=== PATIENT | male | born 1995 | race American Indian/Alaskan Native ===

== ENCOUNTER 2016-04-01 23:34 | Emergency (ER) | payer SELFPAY ==
[2016-04-02 02:13] VITALS: BP 121/59
--- NOTE | 2016-04-02 04:37 | Emergency Department Report ---
- General Chief complaint: Skin/Abscess/Foreign Body Stated complaint: RASH/ARMS Time Seen by Provider: 04/02/16 04:21 Source: patient Mode of arrival: Ambulatory Limitations: No Limitations - History of Present Illness Initial comments: Patient here reports sores to rt upper extremity. He said it started on Rt FA below elbow and he drained some pus out of it. He reports that he has 2 more sore that started a few days ago.Denies any pain at present.He initially beleived he was bitten by a spider but know not sure because of new areas. Patient reports that he's putting peroxide and A+D Ointment to areas. He said he's had similar incident in the past. Denies any fever or chills or nausea or vomiting. Rash is localized to right upper extremity. MD complaint: abscess/boil Onset/Timin -: days(s) Tetanus Up to Date: yes Location: RUE Severity scale (0 -10): 0 Context: other (possible insect bite) Associated symptoms: denies other symptoms Treatments Prior to Arrival: OTC topical medication - Related Data Previous Rx's Medication Instructions Recorded Last Taken Type Ciprofloxacin HCl [Ciprofloxacin 500 mg PO BID #10 tablet 04/21/14 Unknown Rx TAB] Ibuprofen [Motrin] 800 mg PO Q8HR PRN #20 tablet 01/02/16 Unknown Rx Sulfamethoxazole/Trimethoprim 1 each PO BID #20 tablet 04/02/16 Unknown Rx [Bactrim DS TAB] Allergies Allergy/AdvReac Type Severity Reaction Status Date / Time No Known Allergies Allergy Verified 04/21/14 12:59 Abscess Boil HPI - HPI Chief Complaint: Skin/Abscess/Foreign Body Stated Complaint: RASH/ARMS Time Seen by Provider: 04/02/16 04:21 Home Medications: Previous Rx's Medication Instructions Recorded Last Taken Type Ciprofloxacin HCl [Ciprofloxacin 500 mg PO BID #10 tablet 04/21/14 Unknown Rx TAB] Ibuprofen [Motrin] 800 mg PO Q8HR PRN #20 tablet 01/02/16 Unknown Rx Sulfamethoxazole/Trimethoprim 1 each PO BID #20 tablet 04/02/16 Unknown Rx [Bactrim DS TAB] Allergies/Adverse Reactions: Allergies Allergy/AdvReac Type Severity Reaction Status Date / Time No Known Allergies Allergy Verified 04/21/14 12:59 ED Review of Systems ROS: Stated complaint: RASH/ARMS Other details as noted in HPI Comment: All other systems reviewed and negative Constitutional: denies: chills, fever, malaise, weakness Eyes: denies: eye pain ENT: denies: ear pain, throat pain, congestion Respiratory: no symptoms reported Cardiovascular: denies: chest pain, palpitations, edema, syncope Gastrointestinal: denies: abdominal pain, diarrhea Skin: rash Neurological: denies: headache, numbness, paresthesias, confusion, abnormal gait , other ED Past Medical Hx - Past Medical History Previous Medical History?: No - Surgical History Past Surgical History?: Yes Additional Surgical History: cataract surgery 2011. TUBES IN EARS - Family History Family history: hypertension - Social History Smoking Status: Never Smoker Substance Use Type: None - Medications Home Medications: Home Medications Medication Instructions Recorded Confirmed Last Taken Type Ciprofloxacin HCl [Ciprofloxacin 500 mg PO BID #10 tablet 04/21/14 Unknown Rx TAB] Ibuprofen [Motrin] 800 mg PO Q8HR PRN #20 tablet 01/02/16 Unknown Rx Sulfamethoxazole/Trimethoprim 1 each PO BID #20 tablet 04/02/16 Unknown Rx [Bactrim DS TAB] ED Physical Exam - General Limitations: No Limitations General appearance: alert, in no apparent distress - Head Head exam: Present: atraumatic, normocephalic, normal inspection - Eye Eye exam: Present: normal appearance, PERRL, EOMI Pupils: Present: normal accommodation - ENT ENT exam: Present: normal exam, normal orophraynx, mucous membranes moist, TM's normal bilaterally, normal external ear exam - Neck Neck exam: Present: normal inspection, full ROM. Absent: tenderness, lymphadenopathy - Respiratory Respiratory exam: Present: normal lung sounds bilaterally. Absent: respiratory distress, chest wall tenderness - Cardiovascular Cardiovascular Exam: Present: regular rate, normal rhythm, normal heart sounds - Extremities Exam Extremities exam: Present: normal inspection, full ROM, normal capillary refill. Absent: tenderness, pedal edema, joint swelling, calf tenderness - Back Exam Back exam: Present: normal inspection, full ROM. Absent: tenderness, CVA tenderness (R), CVA tenderness (L), muscle spasm, paraspinal tenderness, vertebral tenderness, rash noted - Neurological Exam Neurological exam: Present: alert, oriented X3, normal gait - Psychiatric Psychiatric exam: Present: normal affect, normal mood - Skin Skin exam: Present: warm, dry, rash, erythema - Expanded Skin Exam Expanded Type of lesion: Present: other (cellulitic area with minimal induration noted to right upper extremity. A total of two quarter size area and one dime-sized area.) Distribution of rash: RUE (in her right forearm, right arm) Description of rash: Present: tenderness, erythematous, swelling, indurated ( minimal induration). Absent: fluctuant ED Course Vital Signs 04/02/16 02:08 Temperature 98.2 F Pulse Rate 60 Respiratory 18 Rate Blood Pressure 121/59 O2 Sat by Pulse 98 Oximetry - Reevaluation(s) Reevaluation #1: 04/02/16 05:10 Given Rocephin 1 g IM and emergency room for cellulitis. ED Medical Decision Making - Medical Decision Making ED course: The patient that he has cellulitis areas to his right arm and we'll need to keep affected area clean and dry. I Discussed with him that if areas of redness increase or if he developed fever to return to emergency room [facility]AN[facility]. Patient given Rocephin 1 g IM and emergency room. Activity area cleansed with iodine and normal saline and left open to air. Patient discharged home with prescription for Bactrim DS and to follow-up with primary care physician if he does not have one that he could follow-up with [facility] or emergency room Critical care attestation.: If time is entered above; I have spent that time in minutes in the direct care of this critically ill patient, excluding procedure time. ED Disposition Clinical Impression: Cellulitis of right upper extremity Disposition: DISCHARGED TO HOME OR SELFCARE Is pt being admited?: No Does the pt Need Aspirin: No Condition: Stable Instructions: Cellulitis (ED) Additional Instructions: Please take antibiotic as prescribed. You put Neosporin to affected areas twice daily until healed. This is over-the- counter medication. Is follow-up with primary care doctor or milieu coordinator in 3-4 days. He do not have a primary care or cannot see dermatology is return to the emergency room. If you noted areas with increased redness, developed fever please return to the emergency room [facility]AN[facility]. Please apply warm compresses to affected area 3-4 times a day to facilitate softening and drainage. Prescriptions: Sulfamethoxazole/Trimethoprim [Bactrim DS TAB] 1 each PO BID #20 tablet Referrals: [facility] [Outside] - 04/06/16 MOSES MORRISSEY MD [Staff Physician] - 04/06/16 Forms: Work/School Release Form(ED)
[2016-04-02] MEDS ORDERED: XYLOCAINE 1% MPF 5 mL INFILTRATI ONE (04:40)
[2016-04-02] MEDS ORDERED: ROCEPHIN IM ONE (04:40)
== END 2016-04-02 05:30 | disposition home or self-care (01) ==
LOC: ED 23:34
DX: L03.113 Cellulitis of right upper limb (principal)
CPT/HCPCS: 96372; 99282; J0696

== ENCOUNTER 2019-07-14 19:35 | Emergency (ER) | payer MEDICAID ==
[2019-07-14 19:40] VITALS: BP 141/81
[2019-07-14] MEDS ORDERED: SODIUM CHLORIDE 0.9% IRR 500 ML BOTTLE IR ONE (19:43)
[2019-07-14] MEDS ORDERED: LIDOCAINE (2%) 20 MG/1 ML VIAL 20 ML MDV INFILTRATI STA (19:57)
--- NOTE | 2019-07-14 20:04 | Emergency Department Report ---
ED Head Trauma HPI - General Chief complaint: Wound/Laceration Stated complaint: LIP LACERATION Time Seen by Provider: 07/14/19 19:56 Source: patient Mode of arrival: Ambulatory Limitations: No Limitations - History of Present Illness Initial comments: 24-year-old F [place]ian male reports he was running from a dog and accidentally ran into the side hitting his face causing injury and laceration which is 6 treatment in the emergency department he denies any loss of consciousness but does have a dull headache no neck pain. This injury occurred about an hour hour before arrival and is worse with palpation and various range of motion. Reports no other injury MD Complaint: head injury, other -: Sudden Mechanism of Injury: unsure Location: frontal Previous Trauma to this Area: No Radiation: none Quality: dull Consistency: constant Provoking factors: none known Other Injuries: none Associated Symptoms: denies: amnesia, repetitive questioning, vision changes, vomiting, vertigo, syncope, weakness, tingling - Related Data Previous Rx's Medication Instructions Recorded Last Taken Type Ciprofloxacin HCl [Ciprofloxacin 500 mg PO BID #10 tablet 04/21/14 Unknown Rx TAB] Ibuprofen [Motrin] 800 mg PO Q8HR PRN #20 tablet 01/02/16 Unknown Rx Sulfamethoxazole/Trimethoprim 1 each PO BID #20 tablet 04/02/16 Unknown Rx [Bactrim DS TAB] Chlorhexidine Gluconate 5 ml TP BID #240 liquid 07/14/19 Unknown Rx [Antiseptic Skin Cleanser] Mupirocin [Bactroban 2%] 1 applic TP TID #1 tube 07/14/19 Unknown Rx Allergies/Adverse reactions: Allergies Allergy/AdvReac Type Severity Reaction Status Date / Time No Known Allergies Allergy Verified 04/21/14 12:59 ED Review of Systems ROS: Stated complaint: LIP LACERATION Other details as noted in HPI Comment: All other systems reviewed and negative ED Past Medical Hx - Past Medical History Previous Medical History?: No - Surgical History Additional Surgical History: cataract surgery 2012. TUBES IN EARS - Social History Smoking Status: Never Smoker Substance Use Type: Marijuana - Medications Home Medications: Home Medications Medication Instructions Recorded Confirmed Last Taken Type Ciprofloxacin HCl [Ciprofloxacin 500 mg PO BID #10 tablet 04/21/14 Unknown Rx TAB] Ibuprofen [Motrin] 800 mg PO Q8HR PRN #20 tablet 01/02/16 Unknown Rx Sulfamethoxazole/Trimethoprim 1 each PO BID #20 tablet 04/02/16 Unknown Rx [Bactrim DS TAB] Chlorhexidine Gluconate 5 ml TP BID #240 liquid 07/14/19 Unknown Rx [Antiseptic Skin Cleanser] Mupirocin [Bactroban 2%] 1 applic TP TID #1 tube 07/14/19 Unknown Rx ED Physical Exam - General Limitations: No Limitations General appearance: alert, in no apparent distress - Head Head exam: Present: normocephalic - Expanded Head Exam Expanded Head exam: Present: abrasion, contusion, hematoma 1 - Abrasion swelling and tenderness 2 - Swelling and some ecchymosis noted small laceration less than 1 cm 3 - 2.5 cm laceration to this region full-thickness 4 - Small laceration to the this region only a couple millimeters - Eye Eye exam: Present: normal appearance, PERRL Pupils: Present: normal accommodation - ENT ENT exam: Present: normal exam, mucous membranes moist, TM's normal bilaterally - Neck Neck exam: Present: normal inspection, full ROM - Respiratory Respiratory exam: Present: normal lung sounds bilaterally. Absent: respiratory distress, wheezes, rales, chest wall tenderness, accessory muscle use, decreased breath sounds - Cardiovascular Cardiovascular Exam: Present: regular rate, normal rhythm. Absent: systolic murmur, diastolic murmur, rubs, gallop - GI/Abdominal GI/Abdominal exam: Present: soft, normal bowel sounds - Rectal Rectal exam: Present: deferred - Extremities Exam Extremities exam: Present: normal inspection - Back Exam Back exam: Present: normal inspection. Absent: CVA tenderness (R), CVA tenderness (L), paraspinal tenderness - Neurological Exam Neurological exam: Present: alert, oriented X3, CN II-XII intact, normal gait - Psychiatric Psychiatric exam: Present: normal affect, normal mood. Absent: anxious, flat affect, manic - Skin Skin exam: Present: warm, dry, intact, normal color. Absent: rash, diaphoretic, erythema, urticaria, petechiae, pallor, abrasion ED Course Vital Signs 07/14/19 19:38 Temperature 98.4 F Pulse Rate 64 Respiratory 18 Rate Blood Pressure 141/81 O2 Sat by Pulse 100 Oximetry - Procedure Description Procedures done: Skin was prepped and draped in sterile fashion anesthesia achieved with 2% lidocaine with no epinephrine 5-0 Prolene was placed in simple operative fashion x5 for wound closure with minimal complications the laceration was 2.5 cm to the upper aspect of the left lip. - Medical Decision Making Cosby coma scale 15. Moderate hematoma to the frontal aspect of the head with some associated abrasion and also swelling to the nasal bridge with with swelling with abrasion as well. No skull crepitance or stepoff. No Daniel sign. No raccoon eyes. No fluid from nose or ears. No nasal septal hematoma. However there is a open wound to the bridge of the nose externally with some adjacent swelling as well open wounds. No cervical spine tenderness. CT scan was recommended to evaluate for the possibility of intracranial hemorrhage given his headache and throbbing in injury mechanism however he refused on multiple occasions. He is of sound judgment alert and oriented x3 and he understands the risk associated with foregoing the recommended CT scan that including chronic injury or or disability given instructions regarding supportive care including pain meds as needed, return precautions, follow-up with primary physician. Critical care attestation.: If time is entered above; I have spent that time in minutes in the direct care of this critically ill patient, excluding procedure time. ED Disposition Clinical Impression: Head injury, Lip laceration, Facial contusion, Facial abrasion Disposition: DC-07 LEFT AGAINST MED ADVICE Is pt being admited?: No Does the pt Need Aspirin: No Condition: Undetermined Instructions: Suture Care (ED), Laceration (ED), Minor Head Injury (ED) Prescriptions: Chlorhexidine Gluconate [Antiseptic Skin Cleanser] 5 ml TP BID #240 liquid Mupirocin [Bactroban 2%] 1 applic TP TID #1 tube Referrals: [facility] [Provider Group] - 3-5 Days
[2019-07-14] MEDS ORDERED: NEOMY 3.5 MG/BACIT 400 UNITS/POLY B 5000 UNITS/GM OINT PACKET TP ONE ×2 (20:45→20:46)
== END 2019-07-14 21:10 | disposition left against medical advice (07) ==
LOC: ED 19:35
DX: S01.511A Laceration without foreign body of lip, initial encounter (principal); S00.83XA Contusion of other part of head, initial encounter; F12.10 Cannabis abuse, uncomplicated; Z98.890 Other specified postprocedural states; Z79.899 Other long term (current) drug therapy; X58.XXXA Exposure to other specified factors, initial encounter; Y93.89 Activity, other specified; Y92.89 Other specified places as the place of occurrence of the external cause; Y99.8 Other external cause status
CPT/HCPCS: 99282; A6250

== ENCOUNTER 2019-07-24 10:05 | Emergency (ER) | payer SELFPAY ==
[2019-07-24 10:20] VITALS: BP 123/58
--- NOTE | 2019-07-24 11:21 | Emergency Department Report ---
Suture/Staple Removal - HPI Chief Complaint: Laceration/Recheck/Suture Stated Complaint: LFT SIDE FACE STITCHS REMOVED Time Seen by Provider: 07/24/19 11:01 When Sutures or Juanis Placed: 5-7 Days Ago Wound Location: Under left nare ED Review of Systems ROS: Stated complaint: LFT SIDE FACE STITCHS REMOVED Other details as noted in HPI Comment: All other systems reviewed and negative ED Past Medical Hx - Past Medical History Previous Medical History?: No - Surgical History Past Surgical History?: Yes Additional Surgical History: cataract surgery 2011. TUBES IN EARS - Social History Smoking Status: Current Every Day Smoker Substance Use Type: None - Medications Home Medications: Home Medications Medication Instructions Recorded Confirmed Last Taken Type Ciprofloxacin HCl [Ciprofloxacin 500 mg PO BID #10 tablet 04/21/14 Unknown Rx TAB] Ibuprofen [Motrin] 800 mg PO Q8HR PRN #20 tablet 01/02/16 Unknown Rx Sulfamethoxazole/Trimethoprim 1 each PO BID #20 tablet 04/02/16 Unknown Rx [Bactrim DS TAB] Chlorhexidine Gluconate 5 ml TP BID #240 liquid 07/14/19 Unknown Rx [Antiseptic Skin Cleanser] Mupirocin [Bactroban 2%] 1 applic TP TID #1 tube 07/14/19 Unknown Rx Suture Removal Exam - Exam General: Vital signs noted. No distress. Alert and acting appropriately. Wound: No Pathologic Erythema, No Tenderness, No Drainage, No Pus, No Wound Dehiscence Other Systems: All other systems reviewed and are unremarkable. ED Course Vital Signs 07/24/19 10:16 Temperature 97.9 F Pulse Rate 54 L Respiratory 15 Rate Blood Pressure 123/58 O2 Sat by Pulse 98 Oximetry ED Recheck MDM - Core Measures AMI Core Measures Followed: Yes - Differential Diagnosis Suture/Staple Removal - Medical Decision Making Sutures removed by this provider. Patient tolerated procedure. Critical care attestation.: If time is entered above; I have spent that time in minutes in the direct care of this critically ill patient, excluding procedure time. ED Disposition Clinical Impression: Visit for suture removal Disposition: DC-01 TO HOME OR SELFCARE Is pt being admited?: No Does the pt Need Aspirin: No Condition: Stable
== END 2019-07-24 11:19 | disposition home or self-care (01) ==
LOC: ED 10:05
DX: Z48.02 Encounter for removal of sutures (principal); F17.200 Nicotine dependence, unspecified, uncomplicated; Z98.890 Other specified postprocedural states; Z79.1 Long term (current) use of non-steroidal anti-inflammatories (NSAID); Z79.2 Long term (current) use of antibiotics; Z79.899 Other long term (current) drug therapy
CPT/HCPCS: 99282

== ENCOUNTER 2021-08-18 07:26 | Emergency (ER) | payer SELFPAY ==
[2021-08-18 07:59] VITALS: BP 117/54
[2021-08-18] MEDS ORDERED: ACETAMINOPHEN 325 MG TAB PO ONE (07:59)
== END 2021-08-18 18:16 | disposition left against medical advice (07) ==
LOC: ED 07:26
DX: R10.9 Unspecified abdominal pain (principal); Z53.21 Procedure and treatment not carried out due to patient leaving prior to being seen by health care provider

== ENCOUNTER 2021-08-19 00:43 | Emergency (ER) | payer SELFPAY ==
[2021-08-19 06:59] LABS: Bilirubin,Urine NEG (Negative); Blood,Urine NEG (Negative); Color,Urine Amber (Yellow); WBC,Urine < 1.0 /HPF (0.0-6.0)
[2021-08-19 07:00] LABS: RBC,Urine < 1.0 /HPF (0.0-6.0)
[2021-08-19 07:34] VITALS: BP 145/65
[2021-08-19] MEDS ORDERED: MORPHINE 4 MG/1 ML INJ IV ONE ×2 (07:42→10:48)
[2021-08-19] MEDS ORDERED: ONDANSETRON 4 MG/2 ML INJ IV ONE (07:42)
[2021-08-19] MEDS ORDERED: SODIUM CHLORIDE 0.9% 1000 ML 1,000 ML IV ONE (07:48)
[2021-08-19] MEDS ORDERED: SODIUM CHLORIDE 0.9% 1000 ML 1,000 ML ONE (07:49)
[2021-08-19 08:06] LABS: Basophils # (Auto) 0.3 K/mm3 (0.0-0.1); Basophils % (Auto) 2.5 % (0.0-1.8); Eosinophils # (Auto) 0.1 K/mm3 (0.0-0.4); Eosinophils % (Auto) 1.1 % (0.0-4.3); Hematocrit 39.6 % (35.5-45.6); Hemoglobin 13.1 gm/dl (11.8-15.2); Lymphocytes # (Auto) 0.9 K/mm3 (1.2-5.4); Lymphocytes % (Auto) 8.1 % (13.4-35.0); Mean Corpuscular HGB Conc 33 % (32-34); Mean Corpuscular Volume 89 fl (84-94); Monocytes % (Auto) 9.2 % (0.0-7.3); Platelet Count 249 K/mm3 (140-440); Red Blood Count 4.47 M/mm3 (3.65-5.03); Red Cell Distribution Width 13.3 % (13.2-15.2)
[2021-08-19 08:27] LABS: Alanine Aminotransferase 16 units/L (7-56); Albumin 3.7 g/dL (3.9-5); BUN/Creatinine Ratio 10; Blood Urea Nitrogen 9 mg/dL (9-20); Calcium 9.1 mg/dL (8.4-10.2); Hemolysis Index 1
--- NOTE | 2021-08-19 08:41 | Ultrasound Report ---
ULTRASOUND ABDOMEN, LIMITED (RIGHT UPPER QUADRANT) INDICATION / CLINICAL INFORMATION: ruq pain. COMPARISON: None available. FINDINGS: PANCREAS: Visualized portion shows no significant abnormality. LIVER: No significant abnormality. Normal hepatopedal flow within the portal vein. GALLBLADDER: No significant abnormality. BILE DUCTS: No significant abnormality. Common bile duct measures 4 mm. FREE FLUID: None. ADDITIONAL FINDINGS: None. IMPRESSION: 1. No significant sonographic abnormality of the right upper quadrant. Signer Name: Romeo Dwyer DO Signed: 08/19/2021 8:37 AM Workstation Name: [id number]
[2021-08-19] MEDS ORDERED: KETOROLAC 30 MG/1 ML INJ IV ONE (10:48)
--- NOTE | 2021-08-19 11:26 | Cat Scan Report ---
CT CHEST WITHOUT CONTRAST INDICATION / CLINICAL INFORMATION: abdominal pain. TECHNIQUE: Axial CT images were obtained through the chest without contrast. All CT scans at this loc ation are performed using CT dose reduction for ALARA by means of automated exposure control. COMPARISON: None available. FINDINGS: HEART: No significant abnormality. CORONARY ARTERY CALCIFICATION: None. THORACIC AORTA: No significant abnormality. MEDIASTINUM / WILIAM: No significant abnormality. PLEURA: No pleural effusion. No pneumothorax. LUNGS: Patchy airspace opacities noted within the right lower lobe. ADDITIONAL FINDINGS: None. SKELETAL SYSTEM: No significant abnormality. IMPRESSION: 1. Right lower lobe pneumonia. CT ABDOMEN AND PELVIS WITH CONTRAST INDICATION / CLINICAL INFORMATION: abdominal pain. TECHNIQUE: Axial CT images were obtained through the abdomen and pelvis after 100 cc of Omnipaque [address] scans at this location are performed using CT dose reduction for ALARA by means of automated exposure control. COMPARISON: None available. FINDINGS: AORTA / ARTERIES: No significant abnormality. IVC / VEINS: No significant abnormality. LYMPH NODES: No significant adenopathy. COLON: No significant abnormality. APPENDIX: No significant abnormality. STOMACH / SMALL BOWEL: No significant abnormality. PERITONEUM: No free fluid. No free air. No fluid collection. LIVER: No significant abnormality. GALLBLADDER: No significant abnormality. BILE DUCTS: No significant abnormality. PANCREAS: No significant abnormality. SPLEEN: No significant abnormality. ADRENALS: No significant abnormality. RIGHT KIDNEY / URETER: No significant abnormality. LEFT KIDNEY / URETER: No significant abnormality. URINARY BLADDER: No significant abnormality. REPRODUCTIVE ORGANS: No significant abnormality. SKELETAL SYSTEM: No significant abnormality. ADDITIONAL FINDINGS: None. IMPRESSION: 1. No acute intra-abdominal or intrapelvic pathology, specifically no CT findings to explain abdomina l pain. Please see above for CT of the chest. Signer Name: Romeo Dwyer DO Signed: 08/19/2021 11:21 AM Workstation Name: [id number]
[2021-08-19] MEDS ORDERED: ACETAMINOPHEN W/CODEINE 300-30 MG TAB PO ONE (11:46)
[2021-08-19] MEDS ORDERED: AMOXICILLIN 500 MG CAP PO ONE (11:46)
[2021-08-19] MEDS ORDERED: AZITHROMYCIN 250 MG TAB PO ONE (11:47)
--- NOTE | 2021-08-19 11:51 | Emergency Department Report ---
ED Abdominal Pain HPI - General Chief Complaint: Abdominal Pain Stated Complaint: KIDNEY Time Seen by Provider: 08/19/21 07:41 Source: patient Mode of arrival: Ambulatory Limitations: No Limitations - History of Present Illness Initial Comments: 26-year-old black male with no past medical history presents to the emergency department for evaluation of 4-day history of worsening right upper quadrant pain, right flank pain, and right upper back pain. He states that pain is 10 out of 10 and persistent. He states that he has had a intermittent fever but denies nausea, vomiting, and penile discharge. He denies any sick contacts. MD Complaint: abdominal pain -: Gradual, days(s) (For) Location: RUQ, R flank Radiation: back (Right upper) Migration to: no migration Severity scale (0 -10): 10 Quality: aching Consistency: constant Worsens With: movement Associated Symptoms: fever. denies: nausea, vomiting, diarrhea, chills, dysuria, hematemesis, hematochezia, melena, hematuria, anorexia, syncope - Related Data Previous Rx's Medication Instructions Recorded Last Taken Type Ciprofloxacin HCl [Ciprofloxacin 500 mg PO BID #10 tablet 04/21/14 Unknown Rx TAB] Ibuprofen [Motrin] 800 mg PO Q8HR PRN #20 tablet 01/02/16 Unknown Rx Sulfamethoxazole/Trimethoprim 1 each PO BID #20 tablet 04/02/16 Unknown Rx [Bactrim DS TAB] Chlorhexidine Gluconate 5 ml TP BID #240 liquid 07/14/19 Unknown Rx [Antiseptic Skin Cleanser] Mupirocin [Bactroban 2%] 1 applic TP TID #1 tube 07/14/19 Unknown Rx Acetaminophen/Codeine [Tylenol 1 tab PO Q6H PRN #12 tab 08/19/21 Unknown Rx /Codeine # 3 tab] Amoxicillin [Trimox CAP] 1,000 mg PO Q8H 7 Days #42 capsule 08/19/21 Unknown Rx Azithromycin 250 mg PO DAILY #4 tab 08/19/21 Unknown Rx Allergies Allergy/AdvReac Type Severity Reaction Status Date / Time No Known Allergies Allergy Verified 08/19/21 07:53 ED Review of Systems ROS: Stated complaint: KIDNEY Other details as noted in HPI Comment: All other systems reviewed and negative Constitutional: fever, malaise, weakness. denies: chills, diaphoresis ENT: denies: ear pain, congestion Respiratory: denies: cough, orthopnea, shortness of breath, SOB with exertion, SOB at rest, stridor, wheezing Cardiovascular: denies: chest pain, palpitations, dyspnea on exertion, orthopnea, edema, syncope, paroxysmal nocturnal dyspnea Gastrointestinal: abdominal pain. denies: nausea, vomiting, diarrhea, hematemesis, melena, hematochezia Genitourinary: denies: urgency, dysuria, frequency, hematuria, discharge Musculoskeletal: back pain Skin: denies: rash, lesions Neurological: denies: headache, weakness ED Past Medical Hx - Past Medical History Previous Medical History?: No - Surgical History Past Surgical History?: Yes Additional Surgical History: cataract surgery 2011. TUBES IN EARS - Social History Smoking Status: Never Smoker Substance Use Type: None - Medications Home Medications: Home Medications Medication Instructions Recorded Confirmed Last Taken Type Ciprofloxacin HCl [Ciprofloxacin 500 mg PO BID #10 tablet 04/21/14 Unknown Rx TAB] Ibuprofen [Motrin] 800 mg PO Q8HR PRN #20 tablet 01/02/16 Unknown Rx Sulfamethoxazole/Trimethoprim 1 each PO BID #20 tablet 04/02/16 Unknown Rx [Bactrim DS TAB] Chlorhexidine Gluconate 5 ml TP BID #240 liquid 07/14/19 Unknown Rx [Antiseptic Skin Cleanser] Mupirocin [Bactroban 2%] 1 applic TP TID #1 tube 07/14/19 Unknown Rx Acetaminophen/Codeine [Tylenol 1 tab PO Q6H PRN #12 tab 08/19/21 Unknown Rx /Codeine # 3 tab] Amoxicillin [Trimox CAP] 1,000 mg PO Q8H 7 Days #42 capsule 08/19/21 Unknown Rx Azithromycin 250 mg PO DAILY #4 tab 08/19/21 Unknown Rx ED Physical Exam - General Limitations: No Limitations General appearance: alert, in no apparent distress - Head Head exam: Present: atraumatic, normocephalic - Eye Eye exam: Present: normal appearance. Absent: conjunctival injection - Neck Neck exam: Present: normal inspection, full ROM. Absent: tenderness, lymphadenopathy - Respiratory Respiratory exam: Present: normal lung sounds bilaterally. Absent: respiratory distress, wheezes, rales, rhonchi, stridor, chest wall tenderness - Cardiovascular Cardiovascular Exam: Present: bradycardia, normal heart sounds - GI/Abdominal GI/Abdominal exam: Present: soft, tenderness (Right upper quadrant). Absent: distended, guarding, rebound, rigid, normal bowel sounds - Extremities Exam Extremities exam: Present: normal inspection, normal capillary refill. Absent: pedal edema, joint swelling, calf tenderness - Back Exam Back exam: Present: normal inspection, CVA tenderness (R). Absent: CVA tenderness (L), vertebral tenderness - Neurological Exam Neurological exam: Present: alert, oriented X3 - Psychiatric Psychiatric exam: Present: normal affect, normal mood - Skin Skin exam: Present: warm, dry, intact, normal color ED Course Vital Signs 08/19/21 08/19/21 08/19/21 02:01 07:33 08:00 Temperature 98.5 F 98.4 F Pulse Rate 54 L 70 Respiratory 18 20 20 Rate Blood Pressure 132/57 145/65 [Left] O2 Sat by Pulse 99 98 Oximetry 08/19/21 08/19/21 08/19/21 08:30 10:55 10:56 Temperature Pulse Rate Respiratory 20 18 18 Rate Blood Pressure [Left] O2 Sat by Pulse Oximetry 08/19/21 12:00 Temperature 98.1 F Pulse Rate 70 Respiratory 18 Rate Blood Pressure 145/65 [Left] O2 Sat by Pulse 99 Oximetry ED Medical Decision Making - Lab Data Result diagrams: 08/19/21 07:45 08/19/21 07:45 - Radiology Data Radiology results: report reviewed, image reviewed Right upper quadrant ultrasound: FINDINGS: PANCREAS: Visualized portion shows no significant abnormality. LIVER: No significant abnormality. Normal hepatopedal flow within the portal vein. GALLBLADDER: No significant abnormality. BILE DUCTS: No significant abnormality. Common bile duct measures 4 mm. FREE FLUID: None. ADDITIONAL FINDINGS: None. IMPRESSION: 1. No significant sonographic abnormality of the right upper quadrant. CT abdomen pelvis with contrast: FINDINGS: HEART: No significant abnormality. CORONARY ARTERY CALCIFICATION: None. THORACIC AORTA: No significant abnormality. MEDIASTINUM / WILIAM: No significant abnormality. PLEURA: No pleural effusion. No pneumothorax. LUNGS: Patchy airspace opacities noted within the right lower lobe. ADDITIONAL FINDINGS: None. SKELETAL SYSTEM: No significant abnormality. IMPRESSION: 1. Right lower lobe pneumonia. CT chest without contrast: FINDINGS: HEART: No significant abnormality. CORONARY ARTERY CALCIFICATION: None. THORACIC AORTA: No significant abnormality. MEDIASTINUM / WILIAM: No significant abnormality. PLEURA: No pleural effusion. No pneumothorax. LUNGS: Patchy airspace opacities noted within the right lower lobe. ADDITIONAL FINDINGS: None. SKELETAL SYSTEM: No significant abnormality. IMPRESSION: 1. Right lower lobe pneumonia. - Medical Decision Making 26-year-old black male with no past medical history presents to the emergency department for evaluation of 4-day history of worsening right upper quadrant pain, right flank pain, and right upper back pain. He states that pain is 10 out of 10 and persistent. He states that he has had a intermittent fever but denies nausea, vomiting, and penile discharge. He denies any sick contacts. Right upper quadrant and right flank tenderness on exam along with right CVA tenderness. No gross abnormalities noted on labs, and urine negative for UTI. Right upper quadrant ultrasound without any gross abnormalities noted. CT chest abdomen and pelvis positive for right lower lobe pneumonia. Patient will be treated with 7-day course of amoxicillin 1000 mg 3 times daily along with azit hromycin 500 mg on day 1 then 250 mg for the next 4 days. He will also be discharged home with Tylenol with codeine for pain and cough. He is advised to take medications as prescribed, drink plenty of noncaffeinated fluids, and follow-up with his primary care provider in 3 to 4 days if no improvement or worsening symptoms. He is advised to return to the emergency department as needed. He verbalizes understanding of and agreement with plan of care. Critical care attestation.: If time is entered above; I have spent that time in minutes in the direct care of this critically ill patient, excluding procedure time. ED Disposition Clinical Impression: Right lower lobe pneumonia Qualifiers: Pneumonia type: due to unspecified organism Qualified Code(s): J18.9 - Pneumonia, unspecified organism Disposition: 01 HOME / SELF CARE / HOMELESS Is pt being admited?: No Does the pt Need Aspirin: No Condition: Stable Instructions: Community-Acquired Pneumonia, Adult, [id number], Bacterial Pneumonia (ED) Additional Instructions: Take medications as prescribed. Follow-up with primary care provider if no improvement or worsening symptoms. Return to the emergency department as needed. Prescriptions: Azithromycin 250 mg PO DAILY #4 tab Amoxicillin [Trimox CAP] 1,000 mg PO Q8H 7 Days #42 capsule Acetaminophen/Codeine [Tylenol /Codeine # 3 tab] 1 tab PO Q6H PRN #12 tab PRN Reason: Pain, Moderate (4-6) Referrals: CHANEL SANTANA MD [Primary Care Provider] - 3-5 Days Forms: Work/School Release Form(ED) Time of Disposition: 11:51
== END 2021-08-19 12:00 | disposition home or self-care (01) ==
LOC: ED 00:43
DX: J18.1 Lobar pneumonia, unspecified organism (principal); Z79.899 Other long term (current) drug therapy
CPT/HCPCS: 36415; 71250; 74177; 76705; 80053; 81001; 83690; 85025; 96361; 96374; 96375; 96376; 99284; J1885; J2270; J2405; J7030; Q9967

== ENCOUNTER 2021-09-13 15:24 | Emergency (ER) | payer SELFPAY ==
[2021-09-13 15:59] VITALS: BP 140/80
== END 2021-09-13 17:00 | disposition left against medical advice (07) ==
LOC: ED 15:24
DX: H57.89 Other specified disorders of eye and adnexa (principal); Z53.21 Procedure and treatment not carried out due to patient leaving prior to being seen by health care provider